=== PATIENT | female | born 2000 | race Caucasian/White ===

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

== ENCOUNTER 2022-05-10 00:44 | Emergency (ER) | payer SELFPAY ==
[2022-05-10 00:45] VITALS: BP 135/90; PULSE 95; RESP 19; TEMP 36.8; O2SAT 98; BMI 24.0
[2022-05-10 00:57] VITALS: BMI 24.0
--- NOTE | 2022-05-10 00:58 | PC.NURSE ---
at bedside with this RN. Pt is refusing blood-work or needles at this time. aware
[2022-05-10 00:59] LABS: Microscopic, Urine URINE MICROSCOPIC (MICROSCOPIC)
[2022-05-10 01:06] LABS: Appearance,Urine SL CLOUDY (Clear); Bilirubin,Urine Negative (Negative); Blood, Urine 3+ (Negative); Color,Urine YELLOW (Yellow); Glucose,Urine (UA) Negative (Negative); Ketones,Urine Negative (Negative); Leukocyte Esterase,Urine TRACE (Negative); Nitrate,Urine Negative (Negative); Protein,Urine 2+ (Negative); Urobilinogen,Urine 0.2 EU/dl (0.2)
[2022-05-10 01:08] LABS: Urine Pregnancy, HCG Qual. Negative (Negative)
--- NOTE | 2022-05-10 01:23 | CT_ITS ---
PROCEDURE INFORMATION: Exam: CT Abdomen And Pelvis Without Contrast Exam date and time: 05/10/2022 1:39 AM Age: 22 years old Clinical indication: Abdominal pain; Localized; Lower; Additional info: Pelvic, bilat low abd pain TECHNIQUE: Imaging protocol: Computed tomography of the abdomen and pelvis without contrast. Radiation optimization: All CT scans at this facility use at least one of these dose optimization techniques: automated exposure control; mA and/or kV adjustment per patient size (includes targeted exams where dose is matched to clinical indication); or iterative reconstruction. COMPARISON: No relevant prior studies available. FINDINGS: Liver: Normal. No mass. Gallbladder and bile ducts: Normal. No calcified stones. No ductal dilation. Pancreas: Normal. No ductal dilation. Spleen: Normal. No splenomegaly. Adrenal glands: Normal. No mass. Kidneys and ureters: Left kidney 2.5 mm nonobstructing stone Stomach and bowel: Moderate amount of stool in the colon. Appendix: Normal appendix. Intraperitoneal space: Unremarkable. No free air. No significant fluid collection. Vasculature: Unremarkable. No abdominal aortic aneurysm. Lymph nodes: Unremarkable. No enlarged lymph nodes. Urinary bladder: Unremarkable as visualized. Reproductive: Unremarkable as visualized. Bones/joints: Unremarkable. No acute fracture. Soft tissues: Unremarkable. IMPRESSION: No acute findings. Left nephrolithiasis.
[2022-05-10 01:24] LABS: RBC,Urine 20-50 #/hpf (0-3)
--- NOTE | 2022-05-10 02:59 | HMH.EDABDPAI ---
Discharge Plan Disposition Patient Disposition: Home, Self-Care Chief Complaint: Abdominal Pain Prescriptions Prescriptions: No Action No Known Home Medications Referrals Follow up/Referrals: Provider,Referral, [Primary Care Provider] - See instructions Clinical Impressions Clinical Impression: Pelvic pain Instructions Patient Instructions: DI for Acute Abdominal Pain Discharge ED Provider: Nathan Sparks Abdominal Pain HPI General Chief Complaint: Abdominal Pain Stated Complaint: Abd pain Time Seen by Provider: 05/10/22 01:20 Mode of Arrival: Family Vehicle Source of Information: Patient and Medical Record Limitations: No Limitations Description of Symptoms (Recalled from ER Triage Doc. by RN): Pt c/o bilat low pelvic pain that began this morning (05/09) and has worsened t/o the day. Denies any n/v/d, vaginal bleeding, or constipation. Denies any dysuria, frequency, or gross hematuria. LPM 1 mn ago. History of Present Illness HPI narrative: bilat lower abd pain x 1 day w/o vag bleeding MD complaint: abdominal pain Onset (ago): day(s) Consistency: intermittent Location: suprapubic Severity: moderate Associated symptoms: denies other symptoms Related Data Home Medications Medication Instructions Recorded Confirmed No Known Home Medications 08/05/21 05/10/22 Allergies Allergy/AdvReac Type Severity Reaction Status Date / Time No Known Allergies Allergy Verified 08/06/21 11:02 [facility] Disclaimer: The information contained in this section may have been updated after the patient was seen, as this information can be updated by other users. Surgical History (Updated 05/10/22 @ 01:08 by Lorie Fernandez RN) History of heart surgery Social History Smoking Status: Never smoker alcohol intake: never substance use type: denies use current occupational status: unemployed Travel in the last 8 weeks: None ROS Obtained: Yes All systems reviewed & no additional complaints except as documented Physical Exam General General appearance: alert Head Head exam: normocephalic Eye Eye exam: Present PERRL and EOMI; Absent scleral icterus ENT ENT exam: Present mucous membranes moist Neck Neck exam: Present trachea midline Respiratory Respiratory exam: Present normal lung sounds bilaterally Cardiovascular Cardiovascular exam: Present regular rate Abdominal Exam Abdominal exam: Present soft and tenderness; Absent guarding or rebound Abdominal tenderness: Present suprapubic and moderate Extremities Exam Extremities exam: Present full ROM Back Exam Back exam: Absent CVA tenderness (R) or CVA tenderness (L) Neurological Exam Neurological exam: Present alert, oriented X3 and CN II-XII intact Psychiatric Psychiatric exam: Present normal affect Skin Skin exam: Absent rash Medical Decision Making Medical Records Medical records reviewed: Yes I reviewed the patient's medical records. Sundar Inquiry Pt receiving controlled substance: No Vital Signs: 05/10/22 00:45 Temperature 98.2 F Temperature Source Oral Pulse Rate [Right] 95 H Respiratory Rate 19 Blood Pressure [Right Arm] 135/90 Blood Pressure Mean [Right Arm] 105 Blood Pressure Source [Right Arm] Automatic Cuff 02 Sat by Pulse Oximetry 98 Oxygen Delivery Method Room Air Lab Data Lab results reviewed: Yes I reviewed the patient's lab results. Lab Results 05/10/22 00:57: Urine Color Yellow, Urine Appearance Sl cloudy, Urine pH 7.0, Ur Specific [place] 1.020, Urine Protein 2+, Urine Glucose (UA) Negative, Urine Ketones Negative, Urine Blood 3+, Urine Nitrate Negative, Urine Bilirubin Negative, Urine Urobilinogen 0.2, Ur Leukocyte Esterase Trace, Urine RBC 20-50, Urine WBC 5-10, Ur Squamous Epith Cells 3-5, Urine Bacteria None 05/10/22 00:57: Urine HCG, Qual Negative Orders (Tests/Meds): ORDERS Category Date Time Status CT abdomen pelvis wo con Stat Cat Scan 05/10/22 01:23 Completed U
[2022-05-10 03:04] VITALS: BP 122/75; PULSE 88; RESP 18; TEMP 36.8; O2SAT 98
== END 2022-05-10 03:19 | disposition home or self-care (01) ==
PROVIDERS: Emergency Provider Emergency Medicine
DX: R10.2 Pelvic and perineal pain (principal); Z86.79 Personal history of other diseases of the circulatory system
CPT/HCPCS: 74176; 81001; 81025; 99284

== ENCOUNTER 2023-11-07 14:58 | Emergency (ER) | payer OTHER, SELFPAY ==
[2023-11-07 14:59] VITALS: BP 116/68; PULSE 64; RESP 19; TEMP 36.9; O2SAT 99; BMI 21.2
--- NOTE | 2023-11-07 15:08 | ED_ITS ---
<Statement entered by Eduardo Villaseñor MD - 11/07/23 17:50> I was consulted by the ABIMBOLA, and we discussed the complexity of problems being addressed. I approved the treatment and management plan for this patient's care in the emergency department, thus performing a substantial portion of the medical decision making. Eduardo Villaseñor MD Discharge Plan Disposition Patient Disposition: Home, Self-Care Condition: Good Prescriptions Prescriptions: New sulfamethoxazole-trimethoprim [Bactrim DS] 800-160 mg tablet 1 tab PO BID 5 Days Qty: 10 0RF Referrals Follow up/Referrals: Provider,Kay, [Primary Care Provider] - See instructions Activity Restrictions/Add. Instructions Additional Instructions/Restrictions: Please take an alternate Tylenol and Motrin as needed for pain discomfort. Return to ER for any worsening signs or symptoms. Clinical Impressions Clinical Impression: Acute pain of right hip Urinary tract infectious disease Qualifiers: Urinary tract infection type: site unspecified Hematuria presence: without hematuria Qualified Code(s): N39.0 - Urinary tract infection, site not specified Instructions Patient Instructions: DI for Urinary Tract Infection (UTI) Discharge ED Provider: Eduardo Villaseñor General Adult HPI <REFUGIO Damon - Last Filed: 11/07/23 16:58> General Chief complaint: Fall Stated complaint: R leg pain Time Seen by Provider: 11/07/23 15:08 History of Present Illness HPI narrative: Patient presents for evaluation of right lower extremity pain. Patient states that she fell out of bed yesterday landing on her right hip. She states that radiates from her right hip down towards her knee and describes the pain as sharp and aching but no numbness tingling motor or sensory loss distally. Patient can bear weight but it hurts . She denies trauma to anywhere else including head neck back chest and denies shortness of breath fever chills hemoptysis hematochezia melena nausea vomiting diarrhea. She did not lose consciousness or nor strike her head. When asked her describe the hide she states it was an air mattress on the floor. Related Data Previous Rx's Medication Instructions Recorded sulfamethoxazole 800 1 tab PO BID 5 days #10 tabs 11/07/23 mg-trimethoprim 160 mg tablet (Bactrim DS) Allergies Allergy/AdvReac Type Severity Reaction Status Date / Time No Known Allergies Allergy Verified 08/06/21 11:02 PFSH <REFUGIO Damon - Last Filed: 11/07/23 16:58> [facility] Disclaimer: The information contained in this section may have been updated after the patient was seen, as this information can be updated by other users. Surgical History (Updated 05/10/22 @ 01:08 by Lorie Fernandez RN) History of heart surgery Social History Smoking Status: Never smoker alcohol intake: never substance use type: denies use current occupational status: unemployed Travel in the last 8 weeks: None <REFUGIO Damon - Last Filed: 11/07/23 16:58> ROS Obtained: Yes Systems reviewed as appropriate & no additional complaints except as documented Physical Exam <REFUGIO Damon - Last Filed: 11/07/23 16:58> General General appearance: alert and in no apparent distress Head Head exam: atraumatic and normal inspection Eye Eye exam: Present normal appearance and EOMI ENT ENT exam: Present normal exam Neck Neck exam: Present normal inspection; Absent tenderness Chest Chest inspection: Present normal inspection and symmetric chest wall rise; Absent tenderness Respiratory Respiratory exam: Present normal lung sounds bilaterally Cardiovascular Cardiovascular exam: Present regular rate and normal rhythm Abdominal Exam Abdominal exam: Present soft and normal bowel sounds; Absent tenderness, guarding, rebound or rigidity Extremities Exam Extremities exam: Present normal inspection, full ROM and tenderness (Tender to palpation only at the right hip without evidence of contusions abrasions ecchymosis deformity. Patient is neurovascular intact distally.) Back Exam Back exam: Present normal inspection, full ROM and tenderness; Absent vertebral tenderness Neurological Exam Neurological exam: Present alert and oriented X3 Skin Skin exam: Present warm, dry, intact and normal color Medical Decision Making <REFUGIO Damon - Last Filed: 11/07/23 16:58> Medical Records Medical records reviewed: Yes I reviewed the patient's medical records. Sundar Inquiry Pt receiving controlled substance: No Vital Signs: 11/07/23 14:59 11/07/23 15:18 11/07/23 17:09 Temperature 98.4 F 98.4 F Temperature Source Oral Oral Pulse Rate 62 60 Pulse Rate [Left Radial] 64 Respiratory Rate 19 20 Blood Pressure 106/66 L 106/46 L Blood Pressure [Right Arm] 116/68 Blood Pressure Mean [Right Arm] 84 02 Sat by Pulse Oximetry 99 99 Oxygen Delivery Method Room Air Room Air Room Air Lab Data Lab results reviewed: Yes I reviewed the patient's lab results. Lab Results 11/07/23 15:28: Urine Color Yellow, Urine Appearance Sl cloudy, Urine pH 6.0, Ur Specific [place] >= 1.030, Urine Protein Negative, Urine Glucose (UA) Negative, Urine Ketones Negative, Urine Blood Negative, Urine Nitrate Negative, Urine Bilirubin Negative, Urine Urobilinogen 0.2, Ur Leukocyte Esterase 2+ A, Urine RBC Occasional, Urine WBC 10-20, Ur Squamous Epith Cells 5-10, Urine Bacteria Trace, Urine HCG, Qual Negative Orders (Tests/Meds): ED MEDICATIONS Discontinued Medications Generic Name Dose Route Start Last Admin Trade Name Edwina PRN Reason Stop Dose Admin Acetaminophen 1,000 mg 11/07/23 15:16 11/07/23 15:27 Acetaminophen 1,000mg/100ml Vial IV 11/07/23 15:17 Not Given ONCE ONE Acetaminophen 1,000 mg 11/07/23 15:27 11/07/23 15:36 Acetaminophen 500mg Tab PO 11/07/23 15:28 1,000 mg ONCE ONE Administration Ibuprofen 800 mg 11/07/23 15:16 11/07/23 15:36 Ibuprofen 400 Mg Tablet PO 11/07/23 15:17 800 mg ONCE ONE Administration Methocarbamol 500 mg 11/07/23 15:16 11/07/23 15:37 Methocarbamol 500mg Tablet PO 11/07/23 15:17 500 mg ONCE ONE Administration ORDERS Category Date Time Status Ankle XR - Right 2 Views [XR ankle RT 2V] Stat Exams 11/07/23 16:11 Completed Femur XR right 2 views [XR femur RT 2V] Stat Exams 11/07/23 15:16 Completed Hip XR right minimum 2 views [XR hip RT 2-3V w/pelvis] Exams 11/07/23 15:16 Completed Stat XR pelvis 1-2V Stat Exams 11/07/23 15:16 Completed Urinalysis and Microscopic Stat Lab 11/07/23 15:28 Completed Urine , HCG Qual. Stat Lab 11/07/23 15:28 Completed Urine Culture Stat Micro 11/07/23 15:28 Received Medical Decision Narrative: In summary patient is a 23-year-old female who presents to the emergency department for evaluation of a fall. Patient is hemodynamically stable upon arrival, afebrile. Physical exam is remarkable for tenderness to palpation about the right hip without evidence of contusions abrasions hematomas ecchymosis or bony deformity. Patient is neurovascular intact distally of the right lower extremity. Patient is able to bear weight. Palpation of the dorsal spine reveals no tenderness or abrasions contusions ecchymosis. GCS 15. Differential diagnosis includes contusion versus fracture. Initial workup will be conducted with plain film x-rays of the hip and pelvis femur. Initial interventions include Tylenol Motrin Robaxin. Initial workup reviewed by me and her urinalysis is equivocal for urinary tract infection however I will treat her with p.o antibiotics, my informal interpretation of her plain film x-ray shows no acute fracture prior to radiology read.. Upon repeat evaluation I had an interactive discussion with the patient and her discomfort is better after initial intervention. Given this we have ruled out any acute fracture or serious or life-threatening problem and that she is appropriate for discharge with a prescription for Bactrim and strict return precautions <Eduardo Villaseñor MD - Last Filed: 11/07/23 17:51> Vital Signs: 11/07/23 14:59 11/07/23 15:18 11/07/23 17:09 Temperature 98.4 F 98.4 F Temperature Source Oral Oral Pulse Rate 62 60 Pulse Rate [Left Radial] 64 Respiratory Rate 19 20 Blood Pressure 106/66 L 106/46 L Blood Pressure [Right Arm] 116/68 Blood Pressure Mean [Right Arm] 84 02 Sat by Pulse Oximetry 99 99 Oxygen Delivery Method Room Air Room Air Room Air Lab Data Lab Results 11/07/23 15:28: Urine Color Yellow, Urine Appearance Sl cloudy, Urine pH 6.0, Ur Specific [place] >= 1.030, Urine Protein Negative, Urine Glucose (UA) Negative, Urine Ketones Negative, Urine Blood Negative, Urine Nitrate Negative, Urine Bilirubin Negative, Urine Urobilinogen 0.2, Ur Leukocyte Esterase 2+ A, Urine RBC Occasional, Urine WBC 10-20, Ur Squamous Epith Cells 5-10, Urine Bacteria Trace, Urine HCG, Qual Negative Orders (Tests/Meds): ED MEDICATIONS Discontinued Medications Generic Name Dose Route Start Last Admin Trade Name Freq PRN Reason Stop Dose Admin Acetaminophen 1,000 mg 11/07/23 15:16 11/07/23 15:27 Acetaminophen 1,000mg/100ml Vial IV 11/07/23 15:17 Not Given ONCE ONE Acetaminophen 1,000 mg 11/07/23 15:27 11/07/23 15:36 Acetaminophen 500mg Tab PO 11/07/23 15:28 1,000 mg ONCE ONE Administration Ibuprofen 800 mg 11/07/23 15:16 11/07/23 15:36 Ibuprofen 400 Mg Tablet PO 11/07/23 15:17 800 mg ONCE ONE Administration Methocarbamol 500 mg 11/07/23 15:16 11/07/23 15:37 Methocarbamol 500mg Tablet PO 11/07/23 15:17 500 mg ONCE ONE Administration ORDERS Category Date Time Status Ankle XR - Right 2 Views [XR ankle RT 2V] Stat Exams 11/07/23 16:11 Completed Femur XR right 2 views [XR femur RT 2V] Stat Exams 11/07/23 15:16 Completed Hip XR right minimum 2 views [XR hip RT 2-3V w/pelvis] Exams 11/07/23 15:16 Completed Stat XR pelvis 1-2V Stat Exams 11/07/23 15:16 Completed Urinalysis and Microscopic Stat Lab 11/07/23 15:28 Completed Urine , HCG Qual. Stat Lab 11/07/23 15:28 Completed Urine Culture Stat Micro 11/07/23 15:28 Received Medical Decision Narrative: In summary patient is a 23-year-old female who presents to the emergency department for evaluation of a fall. Patient is hemodynamically stable upon arrival, afebrile. Physical exam is remarkable for tenderness to palpation about the right hip without evidence of contusions abrasions hematomas ecchymosis or bony deformity. Patient is neurovascular intact distally of the right lower extremity. Patient is able to bear weight. Palpation of the dorsal spine reveals no tenderness or abrasions contusions ecchymosis. GCS 15. Differential diagnosis includes contusion versus fracture. Initial workup will be conducted with plain film x-rays of the hip and pelvis femur. Initial interventions include Tylenol Motrin Robaxin. Initial workup reviewed by me and her urinalysis is equivocal for urinary tract infection however I will treat her with p.o antibiotics, my informal interpretation of her plain film x-ray shows no acute fracture prior to radiology read.. Upon repeat evaluation I had an interactive discussion with the patient and her discomfort is better after initial intervention. Given this we have ruled out any acute fracture or serious or life-threatening problem and that she is appropriate for discharge with a prescription for Bactrim and strict return precautions Critical Care <REFUGIO Damon - Last Filed: 11/07/23 16:58> Critical Care Time Critical Care Time: No
--- NOTE | 2023-11-07 15:16 | XR_ITS ---
FINAL REPORT CLINICAL HISTORY: Fall FINDINGS: Right hip Two views were obtained. There is no acute fracture or dislocation. The joint spaces appear normal. No soft tissue abnormality is identified. IMPRESSION: No acute process. Reviewed, Interpreted and Dictated by Nicolas Mckoy MD Transcribed by Nory Hogan Authenticated and [facility]
--- NOTE | 2023-11-07 15:16 | XR_ITS ---
FINAL REPORT CLINICAL HISTORY: Fall FINDINGS: Right femur Two views were obtained. There is no acute fracture or dislocation. The joint spaces appear normal. No soft tissue abnormality is identified. IMPRESSION: No acute process. Reviewed, Interpreted and Dictated by Nicolas Mckoy MD Transcribed by Nory Hogan Authenticated and [facility]
--- NOTE | 2023-11-07 15:16 | XR_ITS ---
FINAL REPORT CLINICAL HISTORY: Pelvic pain after a fall FINDINGS: PELVIS 1 view of the pelvis was obtained. There is no acute fracture or dislocation. The joint spaces are intact. There is no soft tissue abnormality. IMPRESSION: No acute bony abnormality. Reviewed, Interpreted and Dictated by Nicolas Mckoy MD Transcribed by Irene Stapleton [facility]henticated and [facility]
[2023-11-07 15:18] VITALS: BP 106/66; PULSE 62; O2SAT 99
[2023-11-07] MEDS: IBUPROFEN 400 MG TABLET 800 MG PO (15:36)
[2023-11-07] MEDS: ACETAMINOPHEN 500MG TAB 1000 MG PO (15:36)
[2023-11-07] MEDS: METHOCARBAMOL 500MG TABLET 500 MG PO (15:37)
[2023-11-07 15:39] LABS: Microscopic, Urine URINE MICROSCOPIC (MICROSCOPIC)
[2023-11-07 15:43] LABS: Appearance,Urine SL CLOUDY (Clear); Bilirubin,Urine Negative (Negative); Blood, Urine Negative (Negative); Color,Urine YELLOW (Yellow); Glucose,Urine (UA) Negative (Negative); Ketones,Urine Negative (Negative); Leukocyte Esterase,Urine 2+ (Negative); Nitrate,Urine Negative (Negative); Protein,Urine Negative (Negative); Specific Gravity, Urine >= 1.030 (1.005-1.030); Urine Pregnancy, HCG Qual. Negative (Negative); Urobilinogen,Urine 0.2 EU/dl (0.2)
[2023-11-07 15:57] LABS: Bacteria,Urine Trace /lpf; RBC,Urine Occasional #/hpf (0-3)
--- NOTE | 2023-11-07 16:11 | XR_ITS ---
FINAL REPORT CLINICAL HISTORY: Right ankle pain after a fall FINDINGS: RIGHT ANKLE 2 views were obtained. There is no acute fracture or dislocation. There is an old avulsion fracture of the dorsal navicular bone. The joint spaces are intact. There is no soft tissue abnormality. IMPRESSION: No acute bony abnormality. Reviewed, Interpreted and Dictated by Nicolas Mckoy MD Transcribed by Irene Stapleton Authenticated and . [facility]
[2023-11-07 17:09] VITALS: BP 106/46; PULSE 60; RESP 20; TEMP 36.9; O2SAT 99
== END 2023-11-07 17:10 | disposition home or self-care (01) ==
PROVIDERS: Physician Assistant; Emergency Provider Emergency Medicine
DX: N39.0 Urinary tract infection, site not specified (principal); B96.89 Other specified bacterial agents as the cause of diseases classified elsewhere; M25.551 Pain in right hip; W06.XXXA Fall from bed, initial encounter
CPT/HCPCS: 72170; 73502; 73552; 73600; 81001; 81025; 87086; 96374; 99284

== ENCOUNTER 2023-11-13 14:12 | Outpatient (CLI) | payer OTHER, SELFPAY ==
--- NOTE | 2023-11-13 14:19 | XR_ITS ---
FINAL REPORT CLINICAL HISTORY: Acute right foot pain COMPARISON: None FINDINGS: RIGHT FOOT 3 views of the right foot were obtained. There is no acute fracture or dislocation. Visualized joint spaces are normally aligned. Soft tissues are unremarkable. IMPRESSION: No acute bony abnormality. Reviewed, Interpreted and Dictated by Raul Knutson MD Transcribed by Ursula Walker Authenticated and [facility]
--- NOTE | 2023-11-13 14:20 | XR_ITS ---
FINAL REPORT CLINICAL HISTORY: ACUTE PAIN IN RIGHT ANKLE AND FOOT COMPARISON: 11/07/2023 FINDINGS: RIGHT ANKLE 3 views of the right ankle were obtained. There is no acute fracture or dislocation. The mortise is intact. Visualized joint spaces are normally aligned. Soft tissues are unremarkable. IMPRESSION: No acute bony abnormality. Reviewed, Interpreted and Dictated by Raul Knutson MD Transcribed by Ursula Walker Authenticated and [facility]
== END 2023-11-13 23:59 | disposition home or self-care (01) ==
LOC: RAD 14:15
PROVIDERS: PCP Physician Assistant; Visit Provider Physician Assistant
DX: M25.571 Pain in right ankle and joints of right foot (principal); M79.671 Pain in right foot
CPT/HCPCS: 73610; 73630